=== PATIENT | female | born 1945 | race Caucasian/White ===

== ENCOUNTER → 2019-06-05 | Outpatient (CLI) | payer OTHER ==
[~2019-06-05] MED LIST: ADULT LOW DOSE81 MG; ALPRAZOLAM 0.50.5 M1; ASPIR 8181 MG PO; ATORVASTATIN CA40 MG PO; CENTRUM SILVER1 EAC4 PO; LEVOTHYROXINE0.05 MG PO; LISINOPRIL-HCT1 EAC1; MECLIZINE HCL12.5 MG PO; MINOCYCLINE 5050 M1; NAPROSYN500 MG PO; PRILOSEC 20 MG20 MG PO; PRILOSEC40 MG; VITAMIN D1000 UNI1 PO; VITAMIN D10000 UNIT; XANAX 0.5 MG0.5 MG PO; ZESTORETIC 20-1 EAC3 PO
== END ==
LOC: M.RAD 13:22
DX: Z12.31 Encounter for screening mammogram for malignant neoplasm of breast (principal)